=== PATIENT | female | born 1970 ===

== ENCOUNTER 2018-07-10 11:39 | Emergency (ER) | payer MEDICARE, MEDICAID ==
[2018-07-10 12:20] VITALS: BP 127/81; PULSE 89; RESP 18; TEMP 98.1; O2SAT 97
--- NOTE | 2018-07-10 12:44 | ED PDOC ---
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 Patient states that the pain worsens with movement, and describes it as a sharp cramping sensation. Patient states that the pain initially started on the left side of her neck, but now the pain is to both sides. Patient denies taking medications prior to arrival. Patient reports having a similar episode of symptoms 3-4x months ago and was diagnosed with a muscle spasm. Patient states that the symptoms are identical to her previous episode. Patient denies taking medications prior to arrival. Otherwise: (-) fevers, (-) headaches, (-) dizziness, (-) nausea, (-) vomiting, (-) visual changes, (-) ear pain, (-) throat pain, (-) chest pain, (-) abdominal pain, (-) or shortness of breath. PMD: Jamia Rendon MD Past Medical History Reviewed: Historical Data, Nursing Documentation, Vital Signs Vital Signs: Last Vital Signs Temp 98.1 F 07/10/18 12:15 Pulse 89 07/10/18 12:15 Resp 18 07/10/18 12:15 BP 127/81 07/10/18 12:15 Pulse Ox 97 07/10/18 12:15 MARCIAL Report Viewed: Yes - Medical History PMH: Arthritis, Diabetes, HTN - Surgical History Surgical History: Cholecystectomy - Family History Family History: States: No Known Family Hx - Home Medications Home Medications: Ambulatory Orders Medication Instructions Recorded oxyCODONE/Acetaminophen [Percocet 1 ea PO BID PRN #8 tab 01/06/15 5/325 mg Tab] Ibuprofen [Motrin] 600 mg PO Q6 PRN #20 tab 03/22/15 Acetaminophen [Acetaminophen 8 650 mg PO Q8 PRN #21 tablet.er 07/10/18 Hour] Meloxicam [Mobic] 15 mg PO DAILY PRN #10 tab 07/10/18 Methocarbamol [Robaxin-750] 750 mg PO Q8 PRN #12 tab 07/10/18 - Allergies Allergies/Adverse Reactions: Allergies Allergy/AdvReac Type Severity Reaction Status Date / Time No Known Allergies Allergy Verified 07/10/18 12:20 Review of Systems ROS Statement: Except As Marked, All Systems Reviewed And Found Negative Constitutional: Negative for: Fever Eyes: Negative for: Vision Change ENT: Negative for: Ear Pain, Throat Pain Cardiovascular: Negative for: Chest Pain Respiratory: Negative for: Shortness of Breath Gastrointestinal: Negative for: Nausea, Vomiting, Abdominal Pain Musculoskeletal: Positive for: Neck Pain (left and right side) Neurological: Negative for: Headache, Dizziness Physical Exam - Reviewed Nursing Documentation Reviewed: Yes Vital Signs Reviewed: Yes - Physical Exam Comments: GENERAL APPEARANCE: Patient is awake, alert, oriented x 3, in no acute distress. Resting comfortably. SKIN: Warm, dry; (-) cyanosis. EYES: (-) conjunctival injection ENMT: Mucous membranes moist. Airway patent, (-) stridor. NECK: Supple, FROM (+) tenderness and spasm to bilateral trapezius muscles and to bilateral paracervical muscles (-) stiffness, (-) lymphadenopathy (-) JVD CHEST AND RESPIRATORY: (-) rales, (-) rhonchi, (-) wheezes; breath sounds equal bilaterally. Respirations even and nonlabored. HEART AND CARDIOVASCULAR: (-) irregularity ABDOMEN AND GI: Soft; (-) tenderness BACK: (-) direct bony tenderness, (-) deformity. UPPER EXTREMITIES: Full ROM throughout, (-) tenderness, (-) deformity. Distal pulses good bilaterally. NEURO AND PSYCH: Mental status as above. Intact sensation bilaterally; normal strength in extension of the knees, plantar and dorsiflexion of the toes. Gait: steady. Speech: clear. (-) facial asymmetry (-) aphasia. Normal cognition. - ECG O2 Sat by Pulse Oximetry: 97 (RA) Pulse Ox Interpretation: Normal Medical Decision Making Medical Decision Makin:20 Clinical impression: 47 year old female with acute neck and shoulder pain; muscle spasm Initial plan: * flexeril 10 mg PO once (not driving home) * toradol 30 mg IM once * reevaluation 1300 On re-evaluation, patient reports improvement of symptoms. On exam, patient remains AAOx3, in no acute distress. Vitals stable. Lab/Diagnostic results d/w the patient in great detail. Diagnosis of acute neck and shoulder pain; muscle spasm d/w the patient. Based on history, exam and diagnostic results, plan will be for outpatient follow up with PMD. Patient instructed to follow-up with pmd / referral provided / the clinic in 1- 2 days without fail. Advised to take medication as prescribed. Return to the emergency room at any time for any new or worsening symptoms. Patient states she fully agrees with and understands discharge instructions. States that she agrees with the plan and disposition. Verbalized and repeated discharge instructions and plan. I have given the patient opportunity to ask any additional questions. Scribe Attestation: Documented by Minda Villar, acting as a scribe for Minda Rivera Provider Scribe Attestation: All medical record entries made by the Scribe were at my direction and personally dictated by me. I have reviewed the chart and agree that the record accurately reflects my personal performance of the history, physical exam, medical decision making, and the department course for this patient. I have also personally directed, reviewed, and agree with the discharge instructions and disposition. Disposition - Clinical Impression Clinical Impression: Acute neck pain, Muscle spasms of neck, Muscle spasm of shoulder region - Patient ED Disposition Is Patient to be Admitted: No Counseled Patient/Family Regarding: Studies Performed, Diagnosis, Need For Followup, Rx Given - Disposition Referrals: Jamia Rendon [Family Provider] - Disposition: Routine/Home Disposition Time: 13:00 Condition: STABLE Additional Instructions: La atencin mdica de emergencia que recibi hoy se dirigi a missy sntomas agudos. Si le recetaron algn medicamento, llnelo y tmelo segn las indicaciones. Los sntomas pueden tardar varios alvarado en resolverse. Regrese al Departamento de Emergencias si missy sntomas empeoran, no mejoran o si tiene otros problemas. Comunquese con zuñiga mdico dentro de 2 alvarado para jerod nueva evaluacin y soren un seguimiento o llame a natty de los mdicos / clnicas a los que lara sido referido y que figuran en el formulario de Informacin de visita al paciente que se incluye en zuñiga paquete de darvin. Lleve todos los documentos que le entregaron al momento del darvin junto con todos los medicamentos que est tomando para zuñiga visita de seguimiento. Nuestro tratamiento no puede reemplazar la atencin mdica continua por parte de un proveedor de atencin primaria (PCP) fuera del departamento de emergencias. Prescriptions: Acetaminophen [Acetaminophen 8 Hour] 650 mg PO Q8 PRN #21 tablet.er PRN Reason: Pain, Moderate (4-7) Meloxicam [Mobic] 15 mg PO DAILY PRN #10 tab PRN Reason: Pain, Moderate (4-7) Methocarbamol [Robaxin-750] 750 mg PO Q8 PRN #12 tab PRN Reason: Muscle Spasm Instructions: Neck Pain, Muscle Spasms (DC), Generalized Neck Pain Forms: [employer] (Syriac) Print Language: UPPER SORBIAN - POA Present On Arrival: None
== END 2018-07-10 13:19 | disposition home or self-care (01) ==
LOC: H.ER 11:39
DX: M54.2 Cervicalgia (principal); M62.830 Muscle spasm of back
CPT/HCPCS: 96372; 99282; J1885